=== PATIENT | female | born 1990 | race Caucasian/White ===

== ENCOUNTER 2021-01-16 12:48 | Emergency (ER) | payer BC ==
[~2021-01-16] VITALS: Ht 165.1 cm; Wt 131.8 kg
[2021-01-16 14:26] VITALS: TEMP 98.3
[2021-01-16 16:47] LABS: BASO % 0.5 % (0.0-2.0); EOS # 0.2 (0.0-0.7); EOS % 2.6 % (0-4.0); GRAN # 2.8 (1.4-6.5); GRAN % 48.4 % (42.2-75.2); HEMATOCRIT 37.7 % (37.0-47.0); HEMOGLOBIN 10.8 g/dl (12.5-16.0); LYMPH # 2.3 (1.2-3.4); LYMPH % 39.2 % (20.0-51.0); MEAN CELL VOLUME 66 fl (80.0-100.0); MEAN CORPUSCULAR HEMOGLOBIN 19 pg (27.0-31.0); MEAN CORPUSCULAR HGB CONC 29 g/dl (33.0-37.0); MEAN PLATELET VOLUME 8.8 fl (7.4-10.4); MONO # 0.5 (0.1-0.6); PLATELET COUNT 344 K/mm3 (130-400); RED BLOOD COUNT 5.71 M/mm3 (4.10-5.30); REDCELL DISTRIBUTION WIDTH-CV 20.6 % (11.5-14.5)
[2021-01-16 16:50] LABS: ALANINE AMINOTRANSFERASE 65 U/L (4-34); ALBUMIN 4.3 gm/dL (3.5-5.0); ALKALINE PHOSPHATASE 70 U/L (50-136); ANION GAP 9 mmol/L (7-16); AST,SGOT 43 U/L (15-37); BILIRUBIN,TOTAL < 0.1 mg/dL (0.0-1.0); BLOOD UREA NITROGEN 8 mg/dL (7-17); CALCIUM 9.1 mg/dL (8.4-10.2); CARBON DIOXIDE 26 mmol/L (22-30); CHLORIDE 106 mmol/L (98-107); CREATININE, serum 0.81 (0.52-1.25); GLUCOSE 100 mg/dL (74-106); POTASSIUM 4.3 mmol/L (3.4-5.0); SODIUM 141 mmol/L (137-145); TOTAL PROTEIN 8.1 gm/dL (6.4-8.2)
[2021-01-16 17:04] LABS: TROPONIN-I < 0.012 ng/mL (0.000-0.035)
[2021-01-16] MEDS ORDERED: ZITHROMAX Z PA250 MG PO (18:38)
[2021-01-16] MEDS ORDERED: VENTOLIN0.09 MG IH (18:38)
[2021-01-16] MEDS ORDERED: PREDNISONE20 MG PO (18:38)
[2021-01-16 18:47] VITALS: BP 122/8; PULSE 76
== END 2021-01-16 18:48 | disposition home or self-care (01) ==
LOC: COL.ER 12:48
PROVIDERS: Personal Emergency Response Attendant
DX: U07.1 COVID-19 (principal); R79.1 Abnormal coagulation profile; J45.909 Unspecified asthma, uncomplicated
CPT/HCPCS: J7512; Q9967

== ENCOUNTER 2021-01-26 14:13 | Emergency (ER) | payer BC ==
[~2021-01-26] VITALS: Ht 165.1 cm; Wt 131.8 kg
[~2021-01-26 14:13] MED LIST: PREDNISONE20 MG PO; VENTOLIN0.09 MG IH; ZITHROMAX Z PA250 MG PO
[2021-01-26 14:57] VITALS: BP 169/103; PULSE 86; TEMP 98.7
== END 2021-01-26 16:47 | disposition home or self-care (01) ==
LOC: COL.ER 14:13
DX: U07.1 COVID-19 (principal); J45.909 Unspecified asthma, uncomplicated; Z79.52 Long term (current) use of systemic steroids